=== PATIENT | female | born 1965 | race Two or more races ===

== ENCOUNTER 2016-10-27 09:57 | Outpatient (CLI) | payer BC | END 2016-10-27 23:59 | disposition home or self-care (01) | LOC: RAD 09:57 | PROVIDERS: ATTEND Internal Medicine | DX: M17.11 Unilateral primary osteoarthritis, right knee (principal); M23.8X1 Other internal derangements of right knee | CPT/HCPCS: 73562; 73564-TC ==

== ENCOUNTER 2017-07-04 07:02 | Outpatient (CLI) | payer BC ==
[2017-07-04 08:13] LABS: BASOPHILS % (AUTO) 0.5 % (0.0-2.0); EOSINOPHILS # (AUTO) 0.1 /CMM (0.0-0.7); EOSINOPHILS % (AUTO) 2.2 % (0.0-6.0); HEMATOCRIT 39 % (33-45); LYMPHOCYTES # (AUTO) 1.9 /CMM (0.8-4.8); LYMPHOCYTES % (AUTO) 31.6 % (20.0-44.0); MEAN CORPUSCULAR HEMOGLOBIN 29 PG (26.0-33.0); MEAN CORPUSCULAR HGB CONC 33 g/dl (31.0-36.0); MEAN CORPUSCULAR VOLUME 87 fL (82-100); MONOCYTES # (AUTO) 0.3 /CMM (0.1-1.30); MONOCYTES % (AUTO) 4.8 % (2.0-12.0); NEUTROPHILS # (AUTO) 3.7 /CMM (1.8-8.9); NEUTROPHILS % (AUTO) 60.9 % (43.0-81.0); PLATELET COUNT (AUTO) 247 /CMM (150-450); RDW COEFFICIENT OF VARIATION 12.9 (11.5-15.0); RED BLOOD CELL COUNT(AUTO) 4.51 MIL/uL (4.0-5.2); WHITE BLOOD COUNT (AUTO) 6.1 K/uL (4.3-11.0)
[2017-07-04 08:14] LABS: APPEARANCE,URINE CLEAR (CLEAR); BILIRUBIN,URINE NEGATIVE (NEGATIVE); BLOOD, URINE NEGATIVE Ery/uL (NEGATIVE); COLOR,URINE YELLOW (YELLOW); KETONES,URINE NEGATIVE (NEGATIVE); LEUKOCYTE ESTERASE ,URINE NEGATIVE (NEGATIVE); NITRITE, URINE NEGATIVE (NEGATIVE); PH,URINE 5.5 (5.0-8.0); PROTEIN,URINE NEGATIVE (NEGATIVE); UGLUCOSE NEGATIVE (NEGATIVE); UROBILINOGEN,URINE 0.2 EU/dL (0.2)
[2017-07-04 08:34] LABS: ALBUMIN 3.9 g/dL (3.4-5.0); BILIRUBIN,TOTAL 0.4 mg/dL (0.2-1.0); CALCIUM, SERUM 9.5 mg/dL (8.5-10.1); CREATININE 0.9 mg/dL (0.6-1.3); MAGNESIUM 1.9 mg/dL (1.8-2.4); POTASSIUM 3.9 mmol/L (3.5-5.1); TOTAL PROTEIN, SERUM 7.6 g/dL (6.4-8.2)
[2017-07-04 09:27] LABS: THYROID STIMULATING HORMONE 2.658 uIU/mL (0.358-3.74)
[2017-07-05 10:18] LABS: FOLLICLE STIMULATION HORMONE 71.8 mIU/mL (.); LUTEINIZING HORMONE 45.5 mIU/mL (.); PROGESTERONE 0.1 ng/mL (.); PROLACTIN 9.9 ng/mL (4.8-23.3)
== END 2017-07-04 23:59 | disposition home or self-care (01) ==
LOC: LAB 07:02
PROVIDERS: ATTEND Internal Medicine
DX: I10 Essential (primary) hypertension (principal); E66.9 Obesity, unspecified; R53.83 Other fatigue
CPT/HCPCS: 36415; 80053-TC; 80061-TC; 81000-TC; 83001; 83002; 83735-TC; 84144; 84146; 84439-TC; 84443-TC; 85025-TC

== ENCOUNTER 2017-08-31 15:13 | Outpatient (CLI) | payer BC | END 2017-08-31 23:59 | disposition home or self-care (01) | LOC: RAD 15:13 | PROVIDERS: ATTEND Internal Medicine | DX: M53.3 Sacrococcygeal disorders, not elsewhere classified (principal); Z91.81 History of falling | CPT/HCPCS: 72220-TC ==

== ENCOUNTER 2017-09-16 12:07 | Outpatient (CLI) | payer BC | END 2017-09-17 23:59 | disposition home or self-care (01) | LOC: MRI 12:07 | PROVIDERS: ATTEND Internal Medicine | DX: S83.221A Peripheral tear of medial meniscus, current injury, right knee, initial encounter (principal); M81.0 Age-related osteoporosis without current pathological fracture; M22.41 Chondromalacia patellae, right knee; M25.461 Effusion, right knee; X58.XXXA Exposure to other specified factors, initial encounter; Y93.89 Activity, other specified; Y92.89 Other specified places as the place of occurrence of the external cause; Y99.8 Other external cause status | CPT/HCPCS: 73721-TC ==

== ENCOUNTER 2018-10-17 08:15 | Outpatient (CLI) | payer BC ==
[2018-10-17 09:07] LABS: BASOPHILS % (AUTO) 0.6 % (0.0-2.0); EOSINOPHILS % (AUTO) 2.4 % (0.0-6.0); HEMATOCRIT 40 % (33-45); HEMOGLOBIN 13.2 g/dL (11.5-14.8); LYMPHOCYTES # (AUTO) 1.6 /CMM (0.8-4.8); LYMPHOCYTES % (AUTO) 28.5 % (20.0-44.0); MEAN CORPUSCULAR HGB CONC 34 g/dl (31.0-36.0); MEAN CORPUSCULAR VOLUME 86 fL (82-100); MONOCYTES # (AUTO) 0.3 /CMM (0.1-1.30); MONOCYTES % (AUTO) 4.9 % (2.0-12.0); NEUTROPHILS # (AUTO) 3.5 /CMM (1.8-8.9); NEUTROPHILS % (AUTO) 63.6 % (43.0-81.0); PLATELET COUNT (AUTO) 238 /CMM (150-450); RED BLOOD CELL COUNT(AUTO) 4.59 MIL/uL (4.0-5.2); WHITE BLOOD COUNT (AUTO) 5.5 K/uL (4.3-11.0)
[2018-10-17 09:20] LABS: ALBUMIN 3.8 g/dL (3.4-5.0); BILIRUBIN,TOTAL 0.5 mg/dL (0.2-1.0); CALCIUM, SERUM 9.1 mg/dL (8.5-10.1); CREATININE 0.8 mg/dL (0.6-1.3); POTASSIUM 3.8 mmol/L (3.5-5.1); TOTAL PROTEIN, SERUM 7.2 g/dL (6.4-8.2)
[2018-10-17 09:30] LABS: APPEARANCE,URINE SL CLOUDY (CLEAR); BILIRUBIN,URINE NEGATIVE (NEGATIVE); BLOOD, URINE NEGATIVE Ery/uL (NEGATIVE); COLOR,URINE YELLOW (YELLOW); KETONES,URINE NEGATIVE (NEGATIVE); LEUKOCYTE ESTERASE ,URINE NEGATIVE (NEGATIVE); NITRITE, URINE NEGATIVE (NEGATIVE); PH,URINE 5.5 (5.0-8.0); PROTEIN,URINE NEGATIVE (NEGATIVE); UGLUCOSE NEGATIVE (NEGATIVE); UROBILINOGEN,URINE 0.2 EU/dL (0.2)
[2018-10-17 09:39] LABS: C-REACTIVE PROTEIN 0.3 mg/dL (0.0-0.9); THYROID STIMULATING HORMONE 1.92 uIU/mL (0.358-3.74); URIC ACID 5.7 mg/dL (2.6-7.2)
== END 2018-10-17 23:59 | disposition home or self-care (01) ==
LOC: MRI 08:15
PROVIDERS: ATTEND Legal Medicine
DX: Z00.00 Encounter for general adult medical examination without abnormal findings (principal); S83.242A Other tear of medial meniscus, current injury, left knee, initial encounter; M17.12 Unilateral primary osteoarthritis, left knee; I10 Essential (primary) hypertension; E78.00 Pure hypercholesterolemia, unspecified; E03.9 Hypothyroidism, unspecified; X58.XXXA Exposure to other specified factors, initial encounter; Y93.89 Activity, other specified; Y92.89 Other specified places as the place of occurrence of the external cause; Y99.8 Other external cause status
CPT/HCPCS: 36415; 73721-TC; 80053-TC; 80061-TC; 81000-TC; 82306; 82728-TC; 83540-TC; 84443-TC; 84550-TC; 85025-TC; 85652-TC; 86140-TC; 86431-TC

== ENCOUNTER 2019-04-23 11:03 | Emergency (ER) | payer BC, OTHER ==
[~2019-04-23] VITALS: Ht 160 cm; Wt 77.1 kg
[2019-04-23 11:51] VITALS: BP 170/106
[2019-04-23] MEDS ORDERED: methylPREDNISolone SOD SUCC 125 MG/2ML VIAL ONE (11:57)
[2019-04-23] MEDS ORDERED: methylPREDNISolone SOD SUCC 125 MG/2ML VIAL IM ONE (12:00)
--- NOTE | 2019-04-23 12:15 | NUR ---
Patient discharged to home in stable condition. Written and verbal after care instructions given. Patient verbalizes understanding of instruction.
== END 2019-04-23 12:15 | disposition home or self-care (01) ==
LOC: ER 11:04
DX: B37.2 Candidiasis of skin and nail (principal); R21 Rash and other nonspecific skin eruption; I10 Essential (primary) hypertension; Z90.710 Acquired absence of both cervix and uterus
CPT/HCPCS: 96372; 99283; J2930

== ENCOUNTER 2019-04-29 09:08 | Emergency (ER) | payer BC, OTHER ==
[~2019-04-29] VITALS: Ht 160 cm; Wt 77.1 kg
[2019-04-29 09:12] VITALS: BP 158/93
== END 2019-04-29 09:47 | disposition home or self-care (01) ==
LOC: ER 09:09
DX: R21 Rash and other nonspecific skin eruption (principal); I10 Essential (primary) hypertension; Z90.710 Acquired absence of both cervix and uterus

== ENCOUNTER 2019-11-21 11:27 | Outpatient (CLI) | payer BC ==
[2019-11-21 13:09] LABS: BASOPHILS % (AUTO) 0.6 % (0.0-2.0); EOSINOPHILS % (AUTO) 2.1 % (0.0-6.0); HEMATOCRIT 40 % (33-45); HEMOGLOBIN 13.1 g/dL (11.5-14.8); LYMPHOCYTES # (AUTO) 2.3 /CMM (0.8-4.8); LYMPHOCYTES % (AUTO) 26.6 % (20.0-44.0); MEAN CORPUSCULAR HGB CONC 33 g/dl (31.0-36.0); MEAN CORPUSCULAR VOLUME 86 fL (82-100); MONOCYTES # (AUTO) 0.4 /CMM (0.1-1.30); MONOCYTES % (AUTO) 4.5 % (2.0-12.0); NEUTROPHILS # (AUTO) 5.7 /CMM (1.8-8.9); NEUTROPHILS % (AUTO) 66.2 % (43.0-81.0); PLATELET COUNT (AUTO) 290 /CMM (150-450); RED BLOOD CELL COUNT(AUTO) 4.58 MIL/uL (4.0-5.2); WHITE BLOOD COUNT (AUTO) 8.6 K/uL (4.3-11.0)
[2019-11-21 13:34] LABS: ALBUMIN 3.5 g/dL (3.4-5.0); BILIRUBIN,TOTAL 0.4 mg/dL (0.2-1.0); CALCIUM, SERUM 9.1 mg/dL (8.5-10.1); CREATININE 0.9 mg/dL (0.6-1.3); POTASSIUM 3.7 mmol/L (3.5-5.1); TOTAL PROTEIN, SERUM 6.9 g/dL (6.4-8.2)
[2019-11-21 14:36] LABS: APPEARANCE,URINE CLEAR (CLEAR); BILIRUBIN,URINE NEGATIVE (NEGATIVE); BLOOD, URINE NEGATIVE Ery/uL (NEGATIVE); COLOR,URINE YELLOW (YELLOW); KETONES,URINE NEGATIVE (NEGATIVE); LEUKOCYTE ESTERASE ,URINE NEGATIVE (NEGATIVE); NITRITE, URINE NEGATIVE (NEGATIVE); PH,URINE 5.5 (5.0-8.0); PROTEIN,URINE NEGATIVE (NEGATIVE); UGLUCOSE NEGATIVE (NEGATIVE); UROBILINOGEN,URINE 0.2 EU/dL (0.2)
== END 2019-11-21 23:55 | disposition home or self-care (01) ==
LOC: LAB 11:27
PROVIDERS: ATTEND Legal Medicine
DX: Z01.818 Encounter for other preprocedural examination (principal); I51.7 Cardiomegaly
CPT/HCPCS: 36415; 71045-TC; 80053-TC; 81000-TC; 85025-TC; 85730-TC

== ENCOUNTER → 2019-11-28 | Day surgery (SDC) | payer BC ==
[~2019-11-28] MED LIST: CEFAZOLIN SODIUM/DEXTROSE,ISO 50 ML IV ONE; FENTANYL PF 100MCG/2ML AMPUL ONE; HYDROMORPHONE 1 MG/1 ML DISP.SYRIN ONE; LIDOCAINE 2% JEL 5 ML TUBE ONE; MIDAZOLAM HCL 2 MG/2ML VIAL ONE; methylPREDNISolone ACETATE 80 MG/ML VIAL ONE
== END | disposition home or self-care (01) ==
LOC: DS 05:48
PROVIDERS: ATTEND Specialist
PROC: 0SBD4ZZ Excision of Left Knee Joint, Percutaneous Endoscopic Approach (ICD-10-PCS; principal; 2019-11-28)
DX: S83.242A Other tear of medial meniscus, current injury, left knee, initial encounter (principal); S83.282A Other tear of lateral meniscus, current injury, left knee, initial encounter; X58.XXXA Exposure to other specified factors, initial encounter; Y92.89 Other specified places as the place of occurrence of the external cause; I10 Essential (primary) hypertension; M22.42 Chondromalacia patellae, left knee
CPT/HCPCS: 29880; 88304; 88311; A4217; A6253; J0690 ×2; J1040; J1170; J1885; J2250; J2405; J2704; J2765; J3490; J3010

== ENCOUNTER 2021-06-08 11:08 | Outpatient (CLI) | payer BC | END 2021-06-08 23:59 | disposition home or self-care (01) | LOC: MRI 11:08 | PROVIDERS: ATTEND Legal Medicine | DX: S83.512A Sprain of anterior cruciate ligament of left knee, initial encounter (principal); S83.232A Complex tear of medial meniscus, current injury, left knee, initial encounter; S83.241A Other tear of medial meniscus, current injury, right knee, initial encounter; M17.12 Unilateral primary osteoarthritis, left knee; M25.462 Effusion, left knee; M25.461 Effusion, right knee; M71.22 Synovial cyst of popliteal space [Baker], left knee; M94.262 Chondromalacia, left knee; M67.462 Ganglion, left knee; M25.762 Osteophyte, left knee; X58.XXXA Exposure to other specified factors, initial encounter; Y93.89 Activity, other specified; Y92.89 Other specified places as the place of occurrence of the external cause; Y99.8 Other external cause status | CPT/HCPCS: 73721-TC ==

== ENCOUNTER 2021-07-07 10:44 | Outpatient (CLI) | payer BC ==
[2021-07-07 12:30] LABS: THYROID STIMULATING HORMONE 1.356 uIU/mL (0.358-3.74); URIC ACID 5.5 mg/dL (2.6-7.2)
[2021-07-07 12:41] LABS: ALBUMIN 3.9 g/dL (3.4-5.0); BILIRUBIN,TOTAL 0.4 mg/dL (0.2-1.0); CALCIUM, SERUM 9.1 mg/dL (8.5-10.1); CREATININE 0.8 mg/dL (0.6-1.3); POTASSIUM 3.8 mmol/L (3.5-5.1); TOTAL PROTEIN, SERUM 7.4 g/dL (6.4-8.2)
[2021-07-07 13:00] LABS: BASOPHILS % (AUTO) 0.4 % (0.0-2.0); EOSINOPHILS % (AUTO) 1.6 % (0.0-6.0); HEMATOCRIT 40 % (33-45); HEMOGLOBIN 13.5 g/dL (11.5-14.8); LYMPHOCYTES # (AUTO) 1.7 K/uL (0.8-4.8); LYMPHOCYTES % (AUTO) 23.9 % (20.0-44.0); MEAN CORPUSCULAR HGB CONC 34 g/dl (31.0-36.0); MEAN CORPUSCULAR VOLUME 87 fL (82-100); MONOCYTES # (AUTO) 0.4 K/uL (0.1-1.30); MONOCYTES % (AUTO) 5.5 % (2.0-12.0); NEUTROPHILS # (AUTO) 4.8 K/uL (1.8-8.9); NEUTROPHILS % (AUTO) 68.6 % (43.0-81.0); PLATELET COUNT (AUTO) 264 K/uL (150-450); RED BLOOD CELL COUNT(AUTO) 4.57 MIL/uL (4.0-5.2)
[2021-07-07 13:09] LABS: BILIRUBIN,URINE NEGATIVE (NEGATIVE); COLOR,URINE YELLOW (YELLOW); LEUKOCYTE ESTERASE ,URINE NEGATIVE (NEGATIVE); NITRITE, URINE NEGATIVE (NEGATIVE); PROTEIN,URINE NEGATIVE (NEGATIVE); UGLUCOSE NEGATIVE (NEGATIVE); UROBILINOGEN,URINE 0.2 EU/dL (0.2)
[2021-07-07 13:39] LABS: FREE T4 (FREE THYROXINE) 1.06 ng/dL (0.76-1.46)
[2021-07-07 17:00] LABS: BACTERIA,URINE Many /HPF (None Seen); RBC,URINE 0-2 /HPF (0-2); SQUAMOUS EPITHELIAL CELL,UR Moderate /HPF (None Seen); WBC,URINE 0-2 /HPF (0-3)
== END 2021-07-07 23:59 | disposition home or self-care (01) ==
LOC: LAB 10:44
PROVIDERS: ATTEND Legal Medicine
DX: E11.9 Type 2 diabetes mellitus without complications (principal); E78.5 Hyperlipidemia, unspecified; E55.9 Vitamin D deficiency, unspecified; R53.1 Weakness; Z00.00 Encounter for general adult medical examination without abnormal findings
CPT/HCPCS: 36415; 80053-TC; 81001; 82306; 82607-TC; 82728-TC; 83540-TC; 84439-TC; 84443-TC; 84550-TC; 85025-TC; 87086-TC

== ENCOUNTER 2021-09-18 08:57 | Emergency (ER) | payer BC, OTHER ==
[~2021-09-18] VITALS: Ht 165.1 cm; Wt 77.1 kg
[2021-09-18 09:03] VITALS: BP 140/87
[2021-09-18] MEDS ORDERED: KETOROLAC TROMETHAMINE INJ 30 MG/ML VIAL ONE (09:52)
[2021-09-18] MEDS ORDERED: KETOROLAC TROMETHAMINE INJ 60 MG/2 ML VIAL IM ONE (10:00)
[2021-09-18] MEDS ORDERED: MELO7.5T12 GT (10:04)
--- NOTE | 2021-09-18 10:11 | NUR ---
Patient discharged to home in stable condition. Written and verbal after care instructions given. Patient verbalizes understanding of instruction.
== END 2021-09-18 10:11 | disposition home or self-care (01) ==
LOC: ER 09:23
DX: S39.012A Strain of muscle, fascia and tendon of lower back, initial encounter (principal); Z90.710 Acquired absence of both cervix and uterus; X50.0XXA Overexertion from strenuous movement or load, initial encounter; Y93.89 Activity, other specified; Y92.89 Other specified places as the place of occurrence of the external cause; Y99.8 Other external cause status
CPT/HCPCS: 96372; 99283; J1885

== ENCOUNTER 2022-05-06 10:40 | Outpatient (CLI) | payer BC ==
[~2022-05-06 10:40] MED LIST changes: -CEFAZOLIN SODIUM/DEXTROSE,ISO 50 ML IV ONE; -FENTANYL PF 100MCG/2ML AMPUL ONE; -HYDROMORPHONE 1 MG/1 ML DISP.SYRIN ONE; -LIDOCAINE 2% JEL 5 ML TUBE ONE; +MELO7.5T12 GT; -MIDAZOLAM HCL 2 MG/2ML VIAL ONE; -methylPREDNISolone ACETATE 80 MG/ML VIAL ONE
[2022-05-06 13:22] LABS: BASOPHILS % (AUTO) 0.5 % (0.0-2.0); EOSINOPHILS % (AUTO) 1.4 % (0.0-6.0); HEMATOCRIT 39 % (33-45); HEMOGLOBIN 12.9 g/dL (11.5-14.8); LYMPHOCYTES # (AUTO) 1.6 K/uL (0.8-4.8); LYMPHOCYTES % (AUTO) 23.2 % (20.0-44.0); MEAN CORPUSCULAR HGB CONC 33 g/dl (31.0-36.0); MEAN CORPUSCULAR VOLUME 86 fL (82-100); MONOCYTES # (AUTO) 0.4 K/uL (0.1-1.30); MONOCYTES % (AUTO) 5.2 % (2.0-12.0); NEUTROPHILS # (AUTO) 4.7 K/uL (1.8-8.9); NEUTROPHILS % (AUTO) 69.7 % (43.0-81.0); PLATELET COUNT (AUTO) 270 K/uL (150-450); RED BLOOD CELL COUNT(AUTO) 4.54 MIL/uL (4.0-5.2); WHITE BLOOD COUNT (AUTO) 6.8 K/uL (4.3-11.0)
[2022-05-06 13:32] LABS: BILIRUBIN,URINE NEGATIVE (NEGATIVE); COLOR,URINE YELLOW (YELLOW); LEUKOCYTE ESTERASE ,URINE NEGATIVE (NEGATIVE); NITRITE, URINE NEGATIVE (NEGATIVE); PROTEIN,URINE NEGATIVE (NEGATIVE); UGLUCOSE NEGATIVE (NEGATIVE); UROBILINOGEN,URINE 0.2 EU/dL (0.2)
[2022-05-06 13:33] LABS: ALBUMIN 3.9 g/dL (3.4-5.0); BILIRUBIN,TOTAL 0.4 mg/dL (0.2-1.0); CALCIUM, SERUM 9.4 mg/dL (8.5-10.1); CREATININE 0.9 mg/dL (0.6-1.3); POTASSIUM 3.6 mmol/L (3.5-5.1); TOTAL PROTEIN, SERUM 7.5 g/dL (6.4-8.2)
== END 2022-05-06 23:59 | disposition home or self-care (01) ==
LOC: LAB 10:40
PROVIDERS: ATTEND Legal Medicine
DX: Z01.818 Encounter for other preprocedural examination (principal); R06.02 Shortness of breath
CPT/HCPCS: 36415; 71046; 80053-TC; 85025-TC; 85730-TC

== ENCOUNTER 2022-05-12 13:20 | Outpatient (CLI) | payer BC | END 2022-05-12 23:59 | disposition home or self-care (01) | LOC: LAB 13:20 | PROVIDERS: ATTEND Orthopaedic Surgery | DX: Z01.812 Encounter for preprocedural laboratory examination (principal); Z20.822 Contact with and (suspected) exposure to COVID-19 | CPT/HCPCS: U0003; C9803 ==

== ENCOUNTER 2022-05-17 05:54 | Inpatient (IN) | payer BC ==
[~2022-05-17] VITALS: Ht 160 cm; Wt 79.4 kg
[2022-05-17] MEDS ORDERED: POLYMYXIN B SULFATE 500,000 UNITS ONE (06:44)
[2022-05-17] MEDS ORDERED: BUPIVACAINE MPF W/EPI 0.25% 30 ML VIAL ONE (06:45)
[2022-05-17] MEDS ORDERED: ANESTHESIA TRAY IN PYXIS 1 EA TRAY MC ONE (06:45)
--- NOTE | 2022-05-17 06:50 | NUR ---
RN NOTE 0600 ADMITTED PT FOR LEFT TOTAL KNEE ARTHROPLASTY TODAY. PT ALERT AND ORIENTED X4. AMBULATORY. CAME IN WITH DAUGHTER. DENIES ANY PAIN OR SOB. INSERTED IV ACCESS ON LAC 18G, GOOD BLOOD RETURN, FLUSHES WELL. PT SIGNED CONSENTS FOR SURGERY AND ANESTHESIA, ALL QUESTIONS ANSWERED. BP 158/95 HR 98 RR 20 T 98 O2SAT 98% ON RA.
--- NOTE | 2022-05-17 07:00 | NUR ---
RN NOTES: : STARTED THE SHIFT NIGHT RN REPORTED PT LEFT FOR KNEE REPLACEMENT SURGERY
--- NOTE | 2022-05-17 07:00 | NUR ---
RN NOTE PT WENT TO OR WITH OR NURSE. NOT IN ANY DISTRESS. PRE OP CHECKLIST DONE.
[2022-05-17] MEDS ORDERED: HYDROMORPHONE INJ 2 MG/ML DISP.SYRIN ONE (07:20)
[2022-05-17] MEDS ORDERED: FENTANYL PF 250MCG/5ML AMPUL ONE (07:20)
[2022-05-17] MEDS ORDERED: FAMOTIDINE/PF INJ 20 MG/2 ML VIAL IV ONE (07:21)
[2022-05-17] MEDS ORDERED: MIDAZOLAM HCL 2 MG/2ML VIAL ONE (07:21)
[2022-05-17] MEDS ORDERED: ROCURONIUM BROMIDE 50 MG/5 ML ONE (07:21)
[2022-05-17 07:30] VITALS: BP 158/95
[2022-05-17] MEDS ORDERED: TRANEXAMIC ACID 3,000 MG in SODIUM CHLORIDE IRRIG SOLUTION 70 ML IR ONE (08:00)
[2022-05-17] MEDS ORDERED: MORPHINE SULFATE INJ 4 MG/ML DISP.SYRIN IV PRN (11:00)
[2022-05-17] MEDS ORDERED: ACETAMINOPHEN 325 MG TABLET PO PRN (11:00)
[2022-05-17] MEDS ORDERED: diphenhydrAMINE HCL 25 MG CAPSULE PO PRN (11:00)
[2022-05-17] MEDS ORDERED: MAGNESIUM HYDROXIDE 30 ML UDC PO PRN (11:00)
[2022-05-17] MEDS ORDERED: HYDROCODONE/APAP 5/325MG TABLET PO PRN (11:00)
[2022-05-17] MEDS ORDERED: MAG HYDROX/AL HYDROX/SIMETH 30 ML UDC PO PRN (11:00)
[2022-05-17] MEDS ORDERED: ONDANSETRON HCL/PF 4 MG/2 ML VIAL IV PRN ×2 (11:00)
[2022-05-17] MEDS ORDERED: BISACODYL SUPP (10 MG) 10 MG/SUPP.RECT SUPP.RECT RC PRN (11:00)
[2022-05-17] MEDS ORDERED: ONDANSETRON HCL/PF 4 MG/2 ML VIAL IVP PRN (11:00)
[2022-05-17] MEDS ORDERED: MENTHOL/CETYLPYRD (CEPACOL) 1 LOZ LOZENGE PO PRN (11:00)
[2022-05-17] MEDS ORDERED: SENNOSIDES 8.6 MG TABLET PO PRN (11:00)
[2022-05-17] MEDS ORDERED: CLONIDINE HCL 0.1 MG TABLET PO PRN (11:00)
[2022-05-17] MEDS ORDERED: DOCUSATE SODIUM 250 MG CAPSULE PO PRN (11:00)
[2022-05-17 12:10] VITALS: BP 110/64
--- NOTE | 2022-05-17 12:10 | NUR ---
RN notes: received pt came from total knee replacement surgery,awake alert and oriented x 4. on O2 at 2l/min via nasal canula, O2 sat 95%, denied pain or discomfort, V/S BP 110/60, temp 98.6, pulse 74 aRR 18. IV access lac with ns running kvo, pt c/o of dry mouth asked for ice chips gave her ice ship, left knee dressing intact no bleeding noted. bed kept in low and locked position. will monitor
[2022-05-17] MEDS: HYDROCODONE/APAP 10/325MG TABLET PO PRN (15:21)
[2022-05-17] MEDS: ONDANSETRON HCL/PF 4 MG/2 ML VIAL IV PRN ×2 (15:22→20:19)
[2022-05-17] MEDS: ANCEF 1 GM/50 ML D5W IV SCH ×2 (16:10)
[2022-05-17] MEDS ORDERED: GABAPENTIN 300 MG CAPSULE PO SCH (17:00)
[2022-05-17] MEDS: DOCUSATE SODIUM 100 MG CAPSULE PO SCH (17:21)
[2022-05-17] MEDS: GABAPENTIN 100 MG CAPSULE PO SCH (17:21)
[2022-05-17] MEDS: HYDROMORPHONE 1 MG/1 ML DISP.SYRIN IM/IV/SC PRN ×2 (17:34→21:40)
[2022-05-17] MEDS: HYDROCODONE/APAP 5/325MG TABLET PO PRN (18:54)
--- NOTE | 2022-05-17 19:10 | NUR ---
CAD APPLICATION SUPPORT SPECIALIST CLOSING NOTE PATIENT IN BED RESTING. ON SUPPLEMENTAL OXYGEN VIA NASAL CANULA AT 1 LITER PER MINUTE, OXYGEN SATURATION AT 97%. ALERT AND ORIENTED 2-3. ATTACHED TO EXTERNAL OUTBOUND SALES AGENT READING SINUS RHYTHM. PATIENT WEARING DIAPER , AND USING URINAL ,SKIN IS INTACT. IV ACCESS ON RIGHT FOREARM 22 GAUGE SALINE LOCKED.AND RIGHT HAND GAUGE 22 FLUSHED WELL RUGHT UPPER CHEST HD CATHETER.DIALYSIS WAS DONE EARLIER WITH 1 LITER FLUID OUT .SAFETY MEASURES IMPLEMENTED, BED IN LOWEST LOCKED POSITION, SIDE RAILS UP TIMES 2 CALL LIGHT WITHIN REACH. WILL ENDORSE PRODUCTION INSPECTOR
[2022-05-17 20:00] VITALS: BP 108/80
[2022-05-17] MEDS: FAMOTIDINE (20 MG) 20 MG TABLET PO SCH (20:19)
--- NOTE | 2022-05-17 20:29 | NUR ---
RN NOTE RECEIVED PT AWAKE, AOX4 WITH FAMILY AT BEDSIDE. PT WITH TOLERABLE PAIN AT THIS TIME, NORCO WAS JUST GIVEN. FEELING NAUSEATED, ZOFRAN IVP GIVEN. LEFT KNEE SURGICAL DRESSING CLEAN DRY AND INTACT. WILL CONTINUE TO MONITOR.
[2022-05-17] MEDS: VALSARTAN 80 MG TABLET PO SCH (22:00)
--- NOTE | 2022-05-17 22:33 | NUR ---
RN NOTE PT STATED THAT SHE IS TAKING TRIAMTERENE-HCTZ 37.5-25MG PO AT BEDTIME AT HOME. NOTIFIED DR SIMMONS, AGREED TO ORDER.
[2022-05-17] MEDS: TRIAMTERENE/HYDROCHLOROTHIAZID (37.5/25MG) 1 UDCAP PO SCH (23:00)
--- NOTE | 2022-05-17 23:41 | NUR ---
RN NOTE PT AWAKE, NOT IN ANY DISTRESS. WITH TOLERABLE PAIN AT THIS TIME. HELD BP MEDS DUE TO LOW BP. PT DENIES ANY DIZZINESS OR HEADACHE. SURGICAL DRESSING CDI. ENDORSED TO JUDI CARRASQUILLO FOR VAUGHN.
--- NOTE | 2022-05-18 | NUR ---
RECEIVED PT AWAKE, AOX4. PT WITH TOLERABLE PAIN AT THIS TIME. LEFT KNEE SURGICAL DRESSING CLEAN DRY AND INTACT. RT ARM IV PATENT AND FLUSHING WELL. SAFETY MEASURES IN PLACE. PATIENT BED ALARM IS ON. HEAD OF BED ELEVATED. BED IS LOCKED IN LOWEST POSITION AND SIDE RAILS UP X2. CALL LIGHT WITHIN. WILL CONTINUE PLAN OF CARE.
[2022-05-18] MEDS: HYDROCODONE/APAP 5/325MG TABLET PO PRN ×3 (00:24→08:53)
[2022-05-18] MEDS: ANCEF 1 GM/50 ML D5W IV SCH ×2 (00:24)
[2022-05-18] MEDS: HYDROMORPHONE 1 MG/1 ML DISP.SYRIN IM/IV/SC PRN ×4 (03:07→19:56)
[2022-05-18] MEDS: ONDANSETRON HCL/PF 4 MG/2 ML VIAL IV PRN ×5 (03:13→19:55)
[2022-05-18 04:00] VITALS: BP 106/65
--- NOTE | 2022-05-18 06:57 | NUR ---
PT AWAKE, AOX4. PT WITH TOLERABLE PAIN AT THIS TIME. LEFT KNEE SURGICAL DRESSING CLEAN DRY AND INTACT. RT ARM IV PATENT AND FLUSHING WELL. SAFETY MEASURES IN PLACE. PATIENT BED ALARM IS ON. HEAD OF BED ELEVATED. BED IS LOCKED IN LOWEST POSITION AND SIDE RAILS UP X2. CALL LIGHT WITHIN. WILL ENDORSE TO NEXT NURSE ON DUTY FOR CONTINUITY OF CARE.
--- NOTE | 2022-05-18 07:35 | NUR ---
RN OPENING NOTE PT AWAKE, AOX4. ON ROOM AIR 02 SAT OF 96%. PT WITH TOLERABLE PAIN AT THIS TIME. ABLE TO MAKE NEEDS KNOWN. LEFT KNEE SURGICAL DRESSING CLEAN DRY AND INTACT. RT ARM IV PATENT AND FLUSHING WELL. SAFETY MEASURES IN PLACE. PATIENT BED ALARM IS ON. HEAD OF BED ELEVATED. BED IS LOCKED IN LOWEST POSITION AND SIDE RAILS UP X2. CALL LIGHT WITHIN REACH. WILL CONTINUE TO MONITOR THROUGHOUT SHIFT.
[2022-05-18 08:00] VITALS: BP 116/75
[2022-05-18] MEDS ORDERED: GABAPENTIN 100 MG CAPSULE PO SCH (09:00)
[2022-05-18] MEDS: ASPIRIN 325 MG TABLET PO SCH (11:34)
[2022-05-18] MEDS: DOCUSATE SODIUM 100 MG CAPSULE PO SCH ×2 (11:34→18:15)
[2022-05-18] MEDS: FAMOTIDINE (20 MG) 20 MG TABLET PO SCH ×2 (11:35→21:47)
[2022-05-18] MEDS: GABAPENTIN 100 MG CAPSULE PO SCH ×2 (11:35→18:15)
[2022-05-18] MEDS: VALSARTAN 80 MG TABLET PO SCH ×2 (11:36→21:55)
[2022-05-18 16:00] VITALS: BP 130/80
[2022-05-18 16:44] LABS: BASOPHILS % (AUTO) 0.2 % (0.0-2.0); EOSINOPHILS % (AUTO) 0.6 % (0.0-6.0); HEMATOCRIT 34 % (33-45); HEMOGLOBIN 11.4 g/dL (11.5-14.8); LYMPHOCYTES # (AUTO) 1.4 K/uL (0.8-4.8); LYMPHOCYTES % (AUTO) 18.3 % (20.0-44.0); MEAN CORPUSCULAR HGB CONC 33 g/dl (31.0-36.0); MEAN CORPUSCULAR VOLUME 86 fL (82-100); MONOCYTES # (AUTO) 0.5 K/uL (0.1-1.30); MONOCYTES % (AUTO) 6.5 % (2.0-12.0); NEUTROPHILS # (AUTO) 5.7 K/uL (1.8-8.9); NEUTROPHILS % (AUTO) 74.4 % (43.0-81.0); PLATELET COUNT (AUTO) 198 K/uL (150-450); RED BLOOD CELL COUNT(AUTO) 3.99 MIL/uL (4.0-5.2); WHITE BLOOD COUNT (AUTO) 7.7 K/uL (4.3-11.0)
[2022-05-18 17:11] LABS: ALBUMIN 3.1 g/dL (3.4-5.0); BILIRUBIN,TOTAL 0.7 mg/dL (0.2-1.0); CALCIUM, SERUM 8.4 mg/dL (8.5-10.1); CREATININE 0.8 mg/dL (0.6-1.3); POTASSIUM 3.8 mmol/L (3.5-5.1); TOTAL PROTEIN, SERUM 6.3 g/dL (6.4-8.2)
[2022-05-18 20:00] VITALS: BP 154/95
--- NOTE | 2022-05-18 20:10 | NUR ---
RN CLOSING NOTE PT AWAKE, AOX4. ON ROOM AIR 02 SAT OF 96%. PT WITH TOLERABLE PAIN AT THIS TIME. ABLE TO MAKE NEEDS KNOWN. LEFT KNEE SURGICAL DRESSING CLEAN DRY AND INTACT. RT ARM IV PATENT AND FLUSHING WELL. SAFETY MEASURES IN PLACE. PATIENT BED ALARM IS ON. HEAD OF BED ELEVATED. BED IS LOCKED IN LOWEST POSITION AND SIDE RAILS UP X2. CALL LIGHT WITHIN REACH. WILL ENDORSE CONTINUITY OF CARE TO CLIP ON SUNGLASSES INSPECTOR NURSE.
[2022-05-18] MEDS: Potassium Chloride 20 MEQ in IV D5/ 0.9% NACL 1,000 ML IV SCH (20:21)
--- NOTE | 2022-05-18 21:15 | NUR ---
MS RN NOTE PATIENT STATED THAT SHE HASN'T BEEN ABLE TO SLEEP, REQUESTED SLEEPING PILL. NOTIFIED TRANSITIONAL CARE MANAGER AHMET FERGUSON WITH ORDER TO CHANGE DILAUDID 0.5 MG IV Q2H TO Q4H AND TO START ON RESTORIL 15 MG PO PRN HS. ORDER CARRIED OUT
[2022-05-18] MEDS ORDERED: TEMAZEPAM 15 MG CAPSULE PO PRN (21:30)
[2022-05-18] MEDS: TRIAMTERENE/HYDROCHLOROTHIAZID (37.5/25MG) 1 UDCAP PO SCH (22:45)
[2022-05-19] MEDS: HYDROCODONE/APAP 10/325MG TABLET PO PRN (01:22)
[2022-05-19 04:00] VITALS: BP 127/79
[2022-05-19] MEDS: HYDROMORPHONE 1 MG/1 ML DISP.SYRIN IM/IV/SC PRN ×4 (04:48→18:04)
[2022-05-19] MEDS: Potassium Chloride 20 MEQ in IV D5/ 0.9% NACL 1,000 ML IV SCH ×2 (05:18→16:54)
[2022-05-19 06:44] LABS: BASOPHILS % (AUTO) 0.3 % (0.0-2.0); HEMATOCRIT 34 % (33-45); HEMOGLOBIN 11.5 g/dL (11.5-14.8); LYMPHOCYTES # (AUTO) 1.1 K/uL (0.8-4.8); LYMPHOCYTES % (AUTO) 17.8 % (20.0-44.0); MEAN CORPUSCULAR HGB CONC 34 g/dl (31.0-36.0); MEAN CORPUSCULAR VOLUME 84 fL (82-100); MONOCYTES # (AUTO) 0.4 K/uL (0.1-1.30); MONOCYTES % (AUTO) 7.5 % (2.0-12.0); NEUTROPHILS # (AUTO) 4.4 K/uL (1.8-8.9); NEUTROPHILS % (AUTO) 73.4 % (43.0-81.0); PLATELET COUNT (AUTO) 201 K/uL (150-450); RED BLOOD CELL COUNT(AUTO) 3.97 MIL/uL (4.0-5.2)
--- NOTE | 2022-05-19 07:04 | NUR ---
MS RN CLOSING NOTE PATIENT RESTING IN BED, ALERT/ORIENTED X 4, PT ABLE TO MAKE NEEDS KNOWN. PT STABLE ON RA, NO S/S OF DISTRESS OR SOB NOTED, BREATHING EVEN AND UNLABORED. PUREWICK IN PLACE AND DRAINING CLEAR YELLOW URINE, OUTPUT OF 1200 ML. IV ACCESS ON RAC #20G INTACT AND INFUSING POTASSIUM CHLORIDE 20 MEQ IN D5NS @ 100 ML/HR. MEDICATIONS GIVEN ORDERED, PT NEEDS MET THROUGHOUT SHIFT, PAIN AND NAUSEA CONTROL THROUGHOUT SHIFT. SAFETY MEASURES IN PLACE: CALL LIGHT WITHIN REACH, SIDE RAILS UP X 2, BED LOCKED IN LOWEST POSITION, BED ALARM ON. WILL ENDORSE TO DAYSHIFT NURSE FOR CONTINUITY OF CARE
[2022-05-19 07:21] LABS: CALCIUM, SERUM 8.4 mg/dL (8.5-10.1); CREATININE 0.8 mg/dL (0.6-1.3)
--- NOTE | 2022-05-19 07:30 | NUR ---
RN OPENING NOTE PATIENT IS IN BED, ASLEEP BUT EASILY AROUSABLE, ALERT AND OREINTED X 4. ON ROOM AIR, SATTING AT 95%. BREATHING UNLABORED AND NOT IN ANY FORM OF DISTRESS. VERBALIZES PAIN 3/10 ON SURGICAL SITE. RIGHT ANTECUBITAL SALINE LOCK INTACT AND PATENT. PUREWICK IN PLACE DRAINING TO CLEAR YELLOW URINE. ALL HOSPITAL SAFETY PRECAUTIONS ARE IN PLACE. BED IS LOCKED IN LOWEST POSITION, 3 SIDE RAILS UP, CALL LIGHT WITHIN REACH. WILL CONTINUE TO MONITOR THROUGHOUT SHIFT.
[2022-05-19 08:00] VITALS: BP 128/87
[2022-05-19] MEDS: ASPIRIN 325 MG TABLET PO SCH (08:58)
[2022-05-19] MEDS: FAMOTIDINE (20 MG) 20 MG TABLET PO SCH ×2 (08:58→20:53)
[2022-05-19] MEDS: VALSARTAN 80 MG TABLET PO SCH ×2 (08:58→20:53)
[2022-05-19] MEDS: DOCUSATE SODIUM 100 MG CAPSULE PO SCH ×2 (08:59→16:53)
[2022-05-19] MEDS: GABAPENTIN 100 MG CAPSULE PO SCH ×2 (08:59→16:53)
--- NOTE | 2022-05-19 09:25 | NUR ---
RN NOTE DILAUDID GIVEN PRIOR TO PT.
[2022-05-19] MEDS: ONDANSETRON HCL/PF 4 MG/2 ML VIAL IV PRN (09:55)
--- NOTE | 2022-05-19 10:05 | NUR ---
RN NOTE SEEN PATIENT SITTING ON CHAIR, VERBALIZES PAIN RELIEF. HOWEVER, PATIENT VERBALIZED NAUSEA AND ASKED FOR MEDICATION. ZOFRAN GIVEN PRN. WILL CONTINUE TO MONITOR.
[2022-05-19 16:00] VITALS: BP 140/81
--- NOTE | 2022-05-19 16:54 | NUR ---
RN NOTE DISCONTINUED RIGHT FOREARM IV BECAUSE IT WAS INFILTRATED.. IV REINSERTED ON LEFT ANTECUBITAL BY JUDI NINO. IV PATENT AND INFUSING WELL.
--- NOTE | 2022-05-19 18:50 | NUR ---
RN CLOSING NOTE PATIENT REMAINED STABLE THROUGHOUT SHIFT. VERBALIZES PAIN RELIEF FROM PAIN MEDICATION AND COLD COMPRESS.DENIES NAUSEA, BREATHING UNLABORED AND NOT IN ANY FORM OF DISTRESS. IV LINE ON LEFT ANTECUBITAL REMAINS INTACT AND PATENT. ALL HOSPITAL SAFETY PRECAUTIONS KEPT IN PLACE. WILL ENDORSE TO MACHINE BRUSH MAKER NURSE.
--- NOTE | 2022-05-19 19:30 | NUR ---
MS1 RN NOTES RECEIVED ON BED A/O X4,S/P LEFT TOTAL KNEE ARTHROPLASTY ON 05/17,DRESSING INTACT AND DRY,SCD IN USED,PRESENT IVF WITH 20 MEQ KCL,INFUSING AT 100ML/HR RATE ON THE RIGHT AC SALINE VIA IV PUMP,SITE PATENT.PAIN TOLERABLE AT THE MOMENT,VISITORS AT BEDSIDE.CALL LIGHT IN REACH,NEEDS ANTICIPATED.
[2022-05-19 20:00] VITALS: BP 126/76
[2022-05-19] MEDS: HYDROCODONE/APAP 5/325MG TABLET PO PRN (22:21)
--- NOTE | 2022-05-19 22:21 | NUR ---
MS RN NOTES PAIN MANAGEMENT C/O PAIN LEFT KNEE 6/10 ON PAIN SCALE,NORCO 5/325MG,1 TAB GIVEN PER PATIENT REQUEST AND ORDERED.VITAL SIGNS STABLE.
[2022-05-19] MEDS: TRIAMTERENE/HYDROCHLOROTHIAZID (37.5/25MG) 1 UDCAP PO SCH (22:22)
[2022-05-20] MEDS: Potassium Chloride 20 MEQ in IV D5/ 0.9% NACL 1,000 ML IV SCH ×2 (03:41→11:09)
[2022-05-20 04:00] VITALS: BP 139/65
--- NOTE | 2022-05-20 06:42 | NUR ---
MS RN CLOSING NOTES AWAKE,ABLE TO GET OUT OF BED TO THE BATHROOM ASSISTED BY CAMERON.PAIN TOLERABLE THIS TIME,PAIN MANAGEMENT EFFECTIVE AND ABLE TO SLEEP WITH IT.ALL DUE MEDS ADMINISTERED,CALL LIGHT IN REACH,NEEDS ATTENDED.
--- NOTE | 2022-05-20 07:15 | NUR ---
RN OPENING NOTE PT AWAKE, SITTING IN THE CHAIR AOX4. ON ROOM AIR 02 SAT OF 96%. PATIENT WITH COMPLAINED OF PAIN 9/10 OF THE LEFT KNEE , NORCO WAS PROVIDED PER MD ORDER ABLE TO MAKE NEEDS KNOWN. LEFT KNEE SURGICAL DRESSING CLEAN DRY AND INTACT. RT ARM IV PATENT AND FLUSHING WELL. SAFETY MEASURES IN PLACE. PATIENT BED ALARM IS ON. HEAD OF BED ELEVATED. BED IS LOCKED IN LOWEST POSITION AND SIDE RAILS UP X2. CALL LIGHT WITHIN REACH. WILL CONTINUE TO MONITOR THROUGHOUT SHIFT.
[2022-05-20] MEDS: HYDROCODONE/APAP 10/325MG TABLET PO PRN ×2 (07:31→13:43)
[2022-05-20 08:00] VITALS: BP 143/91
[2022-05-20] MEDS: FAMOTIDINE (20 MG) 20 MG TABLET PO SCH ×2 (09:23→20:56)
[2022-05-20] MEDS: ASPIRIN 325 MG TABLET PO SCH (09:23)
[2022-05-20] MEDS: VALSARTAN 80 MG TABLET PO SCH ×2 (09:23→21:00)
[2022-05-20] MEDS: DOCUSATE SODIUM 100 MG CAPSULE PO SCH ×2 (09:23→16:56)
[2022-05-20] MEDS: GABAPENTIN 100 MG CAPSULE PO SCH ×2 (09:23→16:56)
--- NOTE | 2022-05-20 12:10 | NUR ---
RN NOTE DR SIMMONS ORDERED TP STOP IV FLUID.
[2022-05-20 17:21] VITALS: BP 140/85
--- NOTE | 2022-05-20 18:33 | NUR ---
RN CLOSING NOTE PT IS AWAKE, SITTING IN THE CHAIR AOX4. ON ROOM AIR 02 SAT OF 96%. PATIENT S/P LEFT KNEE ARTHROPLASTY , COMPLAINED OF PAIN 9/10 OF THE LEFT KNEE , NORCO WAS PROVIDED PER MD ORDER LAST DOSE AT 1830 ABLE TO MAKE NEEDS KNOWN. LEFT KNEE SURGICAL DRESSING CLEAN DRY AND INTACT. RT ARM IV 22 G PATENT AND FLUSHING WELL. SAFETY MEASURES IN PLACE. PATIENT BED ALARM IS ON. HEAD OF BED ELEVATED. CALL LIGHT WITHIN REACH.
[2022-05-20 20:00] VITALS: BP 110/56
[2022-05-20] MEDS: TRIAMTERENE/HYDROCHLOROTHIAZID (37.5/25MG) 1 UDCAP PO SCH (21:33)
--- NOTE | 2022-05-20 22:40 | NUR ---
ms rn notes Received pts in bed awake alert able to make needs known , a/0x4 on r/a sating 97 % no sob no distress noted v/s stable afebrile no c/o of pain at this time , with rfa G#20 intact and patent all needs attended too call light with in reach , due meds given as ordered . diovan hold for 9 pm dose d/t bp 115/56 will continue to monitor pts.
[2022-05-21 04:00] VITALS: BP 128/78
[2022-05-21] MEDS: HYDROCODONE/APAP 10/325MG TABLET PO PRN (06:03)
--- NOTE | 2022-05-21 06:27 | NUR ---
ms rn closing notes Pts remains in bed awake a/ox4 .v/s stable afebrile no sob no distress noted .pts will d/c today all needs attended too call light within reach .will endorse to rn day shift for continuity of care.
--- NOTE | 2022-05-21 07:00 | NUR ---
ms rn notes spoke to dr urban with order pts for discharged today.order noted and carried out.
--- NOTE | 2022-05-21 07:23 | NUR ---
RN NOTES Discharge instructions given to patient. All belongings accounted for. IV SL removed intact. multimedia services manager phone number given to her. Follow up appointment with ortho on may 26. Will wait for spouse for supervisor picking crew. Endorsed to RADHA Hammonds RN
== END 2022-05-21 08:55 | disposition home health service (06) | DRG 470 ==
LOC: DS 05:54 → MEDSG1 05:55 → DS 05-20 07:08 → MEDSG1 05-20 07:08 → DS 05-20 07:12
PROVIDERS: ADMIT Legal Medicine; ATTEND Legal Medicine
PROC: 0SRD0J9 Replacement of Left Knee Joint with Synthetic Substitute, Cemented, Open Approach (ICD-10-PCS; principal; 2022-05-17)
DX: M17.12 Unilateral primary osteoarthritis, left knee (principal); I10 Essential (primary) hypertension; G89.29 Other chronic pain; E66.9 Obesity, unspecified; G47.00 Insomnia, unspecified; Z82.49 Family history of ischemic heart disease and other diseases of the circulatory system; Z68.31 Body mass index [BMI] 31.0-31.9, adult
CPT/HCPCS: 36415; 73564-TC; 80048-TC; 80053-TC; 85025-TC; 97110-TC; 97530-TC; 97760-TC; A4217; C1713; C1776; G0378; J0690; J1170; J2250; J2405; J2704; J2765; J3010; J3480; J3490; J7030; J7042; J7060; L1830

== ENCOUNTER 2023-05-12 05:45 | Inpatient (IN) | payer BC ==
[~2023-05-12] VITALS: Ht 152.4 cm; Wt 92.1 kg
[2023-05-12] MEDS ORDERED: POLYMYXIN B SULFATE 500,000 UNITS ONE (06:12)
[2023-05-12] MEDS ORDERED: BUPIVACAINE 0.5 % PF 150 MG/30 ML VIAL ONE ×2 (06:13→06:41)
[2023-05-12] MEDS ORDERED: ANESTHESIA TRAY IN PYXIS 1 EA TRAY MC ONE (06:13)
[2023-05-12] MEDS ORDERED: FENTANYL PF 250MCG/5ML AMPUL ONE (06:38)
[2023-05-12] MEDS ORDERED: MIDAZOLAM HCL 2 MG/2ML VIAL ONE (06:39)
[2023-05-12] MEDS ORDERED: ROCURONIUM BROMIDE 50 MG/5 ML ONE (06:40)
[2023-05-12] MEDS ORDERED: FAMOTIDINE/PF INJ 20 MG/2 ML VIAL IV ONE (06:40)
[2023-05-12] MEDS ORDERED: HYDROMORPHONE INJ 2 MG/ML DISP.SYRIN ONE (06:40)
[2023-05-12] MEDS ORDERED: TRANEXAMIC ACID 1,000 MG/10 ML VIAL ONE (06:56)
[2023-05-12] MEDS ORDERED: SEVOFLURANE 250 ML BOTTLE IH ONE (08:04)
[2023-05-12] MEDS ORDERED: BISACODYL SUPP (10 MG) 10 MG/SUPP.RECT SUPP.RECT RC PRN ×2 (10:30→13:00)
[2023-05-12] MEDS ORDERED: ACETAMINOPHEN 325 MG TABLET PO PRN ×2 (10:30→13:00)
[2023-05-12] MEDS ORDERED: MORPHINE SULFATE INJ 4 MG/ML DISP.SYRIN IV PRN (10:30)
[2023-05-12] MEDS ORDERED: DOCUSATE SODIUM 100 MG CAPSULE PO PRN (10:30)
[2023-05-12] MEDS ORDERED: DOCUSATE SODIUM 250 MG CAPSULE PO PRN (10:30)
[2023-05-12] MEDS ORDERED: FENTANYL PF 100MCG/2ML AMPUL ONE (10:30)
[2023-05-12] MEDS ORDERED: SENNOSIDES 8.6 MG TABLET PO PRN ×2 (10:30)
[2023-05-12] MEDS ORDERED: HYDROCODONE/APAP 5/325MG TABLET PO PRN ×3 (10:30→13:00)
[2023-05-12] MEDS: IV NS 0.9% 1,000 ML IV PRN ×2 (11:24→20:06)
[2023-05-12 12:00] VITALS: BP 127/74; TEMP 98.5; O2SAT 99
[2023-05-12] MEDS ORDERED: CLONIDINE HCL 0.1 MG TABLET PO PRN (13:00)
[2023-05-12] MEDS ORDERED: MAGNESIUM HYDROXIDE 30 ML UDC PO PRN ×2 (13:00)
[2023-05-12] MEDS ORDERED: ONDANSETRON HCL/PF 4 MG/2 ML VIAL IVP PRN (13:00)
[2023-05-12] MEDS ORDERED: CYCLOBENZAPRINE 10 MG TABLET PO PRN (13:00)
[2023-05-12] MEDS ORDERED: NALOXONE HCL 0.4 MG/ML AMPUL IV PRN (13:00)
[2023-05-12] MEDS ORDERED: Z GUARD REMEDY 4 OZ OINT TP PRN (13:00)
[2023-05-12] MEDS ORDERED: MAG HYDROX/AL HYDROX/SIMETH 30 ML UDC PO PRN ×2 (13:00)
[2023-05-12] MEDS ORDERED: diphenhydrAMINE HCL 25 MG CAPSULE PO PRN (13:00)
[2023-05-12] MEDS ORDERED: HYDROMORPHONE 1 MG/1 ML DISP.SYRIN IV PRN (13:00)
[2023-05-12] MEDS ORDERED: MENTHOL/CETYLPYRD (CEPACOL) 1 LOZ LOZENGE MM PRN (13:00)
[2023-05-12] MEDS: ONDANSETRON HCL/PF 4 MG/2 ML VIAL IVP PRN ×3 (14:04→20:52)
[2023-05-12 16:00] VITALS: BP 137/78; TEMP 98.7; O2SAT 99
[2023-05-12 16:24] VITALS: O2SAT 99
[2023-05-12] MEDS ORDERED: TRIA1TAB3 PO (16:41)
[2023-05-12] MEDS ORDERED: HYDR-3972 PO (16:41)
[2023-05-12] MEDS ORDERED: VALS160T29 PO (16:41)
[2023-05-12] MEDS ORDERED: HYDR28.32 TP (16:41)
[2023-05-12] MEDS ORDERED: GABA-532 PO (16:41)
[2023-05-12] MEDS ORDERED: CYCL10TA9 PO (16:41)
[2023-05-12] MEDS: DOCUSATE SODIUM 100 MG CAPSULE PO SCH (16:59)
[2023-05-12] MEDS ORDERED: ONDANSETRON HCL/PF 4 MG/2 ML VIAL IVP ONE (17:00)
[2023-05-12] MEDS ORDERED: SCOPOLAMINE PATCH 1 MG/72HR TD ONE (17:00)
[2023-05-12] MEDS ORDERED: FAMOTIDINE (20 MG) 20 MG TABLET PO SCH (17:00)
[2023-05-12] MEDS ORDERED: HYDROMORPHONE 1 MG/1 ML DISP.SYRIN IV ONE (17:00)
[2023-05-12] MEDS: ANCEF 1 GM/50 ML D5W IV SCH ×2 (17:15)
[2023-05-12 20:00] VITALS: BP 117/73; TEMP 98.1; O2SAT 99
[2023-05-12] MEDS: HYDROMORPHONE 1 MG/1 ML DISP.SYRIN IM/IV/SC PRN ×2 (20:51→23:05)
[2023-05-13] VITALS: BP 135/72; TEMP 99.2; O2SAT 92
[2023-05-13] MEDS: ONDANSETRON HCL/PF 4 MG/2 ML VIAL IVP PRN ×2 (00:32→04:44)
[2023-05-13] MEDS: ANCEF 1 GM/50 ML D5W IV SCH ×2 (00:34)
[2023-05-13] MEDS: HYDROMORPHONE 1 MG/1 ML DISP.SYRIN IM/IV/SC PRN ×7 (03:06→23:53)
[2023-05-13] MEDS: IV NS 0.9% 1,000 ML IV PRN ×2 (04:44→23:54)
[2023-05-13] MEDS ORDERED: SCOPOLAMINE PATCH 1 MG/72HR TD SCH (06:30)
[2023-05-13 07:31] LABS: BASOPHILS % (AUTO) 0.3 % (0.0-2.0); EOSINOPHILS % (AUTO) 0.3 % (0.0-6.0); HEMATOCRIT 32 % (33-45); HEMOGLOBIN 10.9 g/dL (11.5-14.8); LYMPHOCYTES # (AUTO) 1.7 K/uL (0.8-4.8); LYMPHOCYTES % (AUTO) 19.6 % (20.0-44.0); MEAN CORPUSCULAR HEMOGLOBIN 29 PG (26.0-33.0); MEAN CORPUSCULAR HGB CONC 34 g/dl (31.0-36.0); MEAN CORPUSCULAR VOLUME 86 fL (82-100); MONOCYTES # (AUTO) 0.7 K/uL (0.1-1.30); MONOCYTES % (AUTO) 7.5 % (2.0-12.0); NEUTROPHILS # (AUTO) 6.3 K/uL (1.8-8.9); NEUTROPHILS % (AUTO) 72.3 % (43.0-81.0); PLATELET COUNT (AUTO) 226 K/uL (150-450); RED BLOOD CELL COUNT(AUTO) 3.77 MIL/uL (4.0-5.2); RED CELL DISTRIBUTION WIDTH 13.8 % (11.5-15.0); WHITE BLOOD COUNT (AUTO) 8.7 K/uL (4.3-11.0)
[2023-05-13 07:58] LABS: CALCIUM, SERUM 8.3 mg/dL (8.5-10.1); CREATININE 0.7 mg/dL (0.6-1.3); MAGNESIUM 1.7 mg/dL (1.8-2.4); PHOSPHORUS 2.3 mg/dL (2.5-4.9); POTASSIUM 3.9 mmol/L (3.5-5.1)
[2023-05-13 08:00] VITALS: BP 122/72; TEMP 98.1; O2SAT 99
[2023-05-13] MEDS: PANTOPRAZOLE 40 MG TABLET.DR PO SCH (08:00)
[2023-05-13] MEDS: ASPIRIN 325 MG TABLET PO SCH (08:25)
[2023-05-13] MEDS: DOCUSATE SODIUM 100 MG CAPSULE PO SCH ×2 (08:25→17:23)
[2023-05-13] MEDS ORDERED: Sodium Phosphate 30 MMOL in IV NS 0.9% 250 ML IV SCH (09:00)
[2023-05-13] MEDS: Magnesium 1GM/D5W 100ML PREMIX 100 ML IV SCH ×2 (09:33→11:34)
[2023-05-13 16:00] VITALS: BP 141/80; TEMP 98.2; O2SAT 99
[2023-05-13] MEDS: GABAPENTIN 100 MG CAPSULE PO SCH (17:23)
[2023-05-13] MEDS: HYDROCODONE/APAP 10/325MG TABLET PO PRN (19:55)
[2023-05-14] VITALS: BP 115/65; TEMP 98.4; O2SAT 99
[2023-05-14] MEDS: HYDROCODONE/APAP 10/325MG TABLET PO PRN ×2 (03:50→11:08)
[2023-05-14 06:34] LABS: BASOPHILS % (AUTO) 0.4 % (0.0-2.0); EOSINOPHILS # (AUTO) 0.1 K/uL (0.0-0.7); EOSINOPHILS % (AUTO) 1.2 % (0.0-6.0); HEMATOCRIT 32 % (33-45); HEMOGLOBIN 10.6 g/dL (11.5-14.8); LYMPHOCYTES # (AUTO) 1.3 K/uL (0.8-4.8); LYMPHOCYTES % (AUTO) 17.1 % (20.0-44.0); MEAN CORPUSCULAR HEMOGLOBIN 29 PG (26.0-33.0); MEAN CORPUSCULAR HGB CONC 33 g/dl (31.0-36.0); MEAN CORPUSCULAR VOLUME 86 fL (82-100); MONOCYTES # (AUTO) 0.6 K/uL (0.1-1.30); MONOCYTES % (AUTO) 8.1 % (2.0-12.0); NEUTROPHILS # (AUTO) 5.7 K/uL (1.8-8.9); NEUTROPHILS % (AUTO) 73.2 % (43.0-81.0); PLATELET COUNT (AUTO) 220 K/uL (150-450); RED CELL DISTRIBUTION WIDTH 13.7 % (11.5-15.0); WHITE BLOOD COUNT (AUTO) 7.9 K/uL (4.3-11.0)
[2023-05-14 07:11] LABS: CREATININE 0.7 mg/dL (0.6-1.3); MAGNESIUM 1.9 mg/dL (1.8-2.4); POTASSIUM 3.4 mmol/L (3.5-5.1)
[2023-05-14] MEDS: PANTOPRAZOLE 40 MG TABLET.DR PO SCH (07:48)
[2023-05-14 08:00] VITALS: BP 130/85; TEMP 98.4; O2SAT 97
[2023-05-14] MEDS ORDERED: LOSARTAN POTASSIUM 50 MG TABLET PO SCH (09:00)
[2023-05-14] MEDS: GABAPENTIN 100 MG CAPSULE PO SCH (09:01)
[2023-05-14] MEDS: DOCUSATE SODIUM 100 MG CAPSULE PO SCH (09:01)
[2023-05-14] MEDS: ASPIRIN 325 MG TABLET PO SCH (09:01)
[2023-05-14 09:02] VITALS: BP 130/85
[2023-05-14] MEDS ORDERED: ONDA4TAB5 PO (11:28)
[2023-05-14] MEDS ORDERED: ASPI-992 PO (11:31)
[2023-05-14] MEDS ORDERED: POTASSIUM CHLORIDE 20 MEQ TAB.PRT.SR PO ONE (12:00)
== END 2023-05-14 12:00 | disposition home health service (06) | DRG 470 ==
LOC: DS 05:45 → MEDSG1 11:14
PROVIDERS: ADMIT Legal Medicine; ATTEND Legal Medicine
PROC: 0SRC0J9 Replacement of Right Knee Joint with Synthetic Substitute, Cemented, Open Approach (ICD-10-PCS; principal; 2023-05-12)
DX: M17.11 Unilateral primary osteoarthritis, right knee (principal); E87.1 Hypo-osmolality and hyponatremia; I10 Essential (primary) hypertension; M54.40 Lumbago with sciatica, unspecified side; Z68.39 Body mass index [BMI] 39.0-39.9, adult; E66.01 Morbid (severe) obesity due to excess calories; Z96.652 Presence of left artificial knee joint
CPT/HCPCS: 36415; 73564-TC; 80048-TC; 83735-TC; 84100-TC; 85025-TC; 97110-TC; 97112-TC; 97116-TC; 97530-TC; A4217; A6209; A9563; C1713; C1776; G0378; J0690; J1100; J1170; J2250; J2270; J2405; J2704; J2765; J3010; J3475; J3490; J7030; J7050; J7060; L1830

== ENCOUNTER 2025-03-09 05:42 | Emergency (ER) | payer BC, OTHER ==
[~2025-03-09] VITALS: Ht 162.6 cm; Wt 83.9 kg
[~2025-03-09 05:42] MED LIST changes: +ASPI-992 PO; +CYCL10TA9 PO; +GABA-532 PO; +HYDR-3972 PO; +HYDR28.32 TP; -MELO7.5T12 GT; +ONDA4TAB5 PO; +TRIA1TAB3 PO; +VALS160T29 PO
[2025-03-09] MEDS ORDERED: MECLIZINE HCL 25 MG TABLET ONE (06:12)
[2025-03-09] MEDS ORDERED: ONDANSETRON HCL/PF 4 MG/2 ML VIAL ONE (06:12)
[2025-03-09] MEDS: ONDANSETRON HCL/PF 4 MG/2 ML VIAL IVP ONE (06:20)
[2025-03-09] MEDS: MECLIZINE HCL 12.5 MG TABLET PO ONE (06:20)
[2025-03-09 06:28] LABS: BASOPHILS % (AUTO) 0.5 % (0.0-2.0); EOSINOPHILS # (AUTO) 0.1 K/uL (0.0-0.7); EOSINOPHILS % (AUTO) 1.8 % (0.0-6.0); HEMATOCRIT 38 % (33-45); HEMOGLOBIN 12.8 g/dL (11.5-14.8); LYMPHOCYTES # (AUTO) 1.7 K/uL (0.8-4.8); LYMPHOCYTES % (AUTO) 31.2 % (20.0-44.0); MEAN CORPUSCULAR HEMOGLOBIN 28 PG (26.0-33.0); MEAN CORPUSCULAR HGB CONC 33 g/dl (31.0-36.0); MEAN CORPUSCULAR VOLUME 83 fL (82-100); MONOCYTES # (AUTO) 0.5 K/uL (0.1-1.30); MONOCYTES % (AUTO) 8.7 % (2.0-12.0); NEUTROPHILS # (AUTO) 3.2 K/uL (1.8-8.9); NEUTROPHILS % (AUTO) 57.8 % (43.0-81.0); PLATELET COUNT (AUTO) 308 K/uL (150-450); RED BLOOD CELL COUNT(AUTO) 4.63 MIL/uL (4.0-5.2); RED CELL DISTRIBUTION WIDTH 12.7 % (11.5-15.0); WHITE BLOOD COUNT (AUTO) 5.5 K/uL (4.3-11.0)
[2025-03-09 06:34] LABS: CALCIUM, SERUM 9.6 mg/dL (8.5-10.1); CARBON DIOXIDE 28 mmol/L (21-32); CHLORIDE 93 mmol/L (98-107); CREATININE 0.8 mg/dL (0.6-1.3); GLUCOSE 110 mg/dL (74-106); POTASSIUM 3.7 mmol/L (3.5-5.1); SODIUM SERUM 128 mmol/L (136-145); UREA NITROGEN, BLOOD 12 mg/dL (7-18)
[2025-03-09 06:40] LABS: ALANINE AMINOTRANSFERASE 19 U/L (12-78); ALBUMIN 3.7 g/dL (3.4-5.0); ALKALINE PHOSPHATASE 72 U/L (46-116); ASPARTATE AMINOTRANSFERASE 15 U/L (15-37); BILIRUBIN,DIRECT 0.1 mg/dL (0.0-0.2); BILIRUBIN,TOTAL 0.7 mg/dL (0.2-1.0); TOTAL PROTEIN, SERUM 7.2 g/dL (6.4-8.2)
[2025-03-09 07:52] LABS: APPEARANCE,URINE CLEAR (CLEAR); BILIRUBIN,URINE NEGATIVE (NEGATIVE); BLOOD, URINE NEGATIVE Ery/uL (NEGATIVE); COLOR,URINE YELLOW (YELLOW); KETONES,URINE NEGATIVE (NEGATIVE); LEUKOCYTE ESTERASE ,URINE NEGATIVE (NEGATIVE); NITRITE, URINE NEGATIVE (NEGATIVE); PROTEIN,URINE NEGATIVE (NEGATIVE); UGLUCOSE NEGATIVE (NEGATIVE); UROBILINOGEN,URINE 0.2 EU/dL (0.2)
[2025-03-09] MEDS: IV NS 0.9% 1,000 ML BAG IV ONE (08:19)
[2025-03-09] MEDS: AMLODIPINE BESYLATE 5 MG TABLET PO ONE (08:30)
[2025-03-09] MEDS: IBUPROFEN 600 MG TABLET PO ONE (08:30)
[2025-03-09] MEDS ORDERED: MECL-159 PO (09:10)
[2025-03-09] MEDS ORDERED: AMLO-212 PO (09:10)
[2025-03-09] MEDS ORDERED: IBUPROFEN 600 MG TABLET ONE (09:43)
[2025-03-09] MEDS ORDERED: AMLODIPINE BESYLATE 5 MG TABLET ONE (09:43)
[2025-03-09 10:18] VITALS: BP 148/89; TEMP 98.2; O2SAT 99
== END 2025-03-09 10:19 | disposition home or self-care (01) ==
LOC: ER 06:00
DX: E87.1 Hypo-osmolality and hyponatremia (principal); I10 Essential (primary) hypertension; R42 Dizziness and giddiness; Z79.82 Long term (current) use of aspirin; Z79.899 Other long term (current) drug therapy; Z90.710 Acquired absence of both cervix and uterus
CPT/HCPCS: 99285; 96374; 70450; 71045; 93005; 85025; 80048; 80076; 81003; 36415; 84484; J8597; J2405; J7040